=== PATIENT | female | born 1965 | race Caucasian/White ===

== ENCOUNTER 2021-05-18 15:22 | Emergency (ER) | payer BC ==
[2021-05-18 18:06] LABS: Basophils # (A) 0.1 k/uL (0-0.2); Basophils % (A) 1 %; Eosinophils # (A) 0.1 k/uL (0-0.7); Eosinophils % (A) 2 %; Lymphocytes # (A) 2.3 k/uL (1.0-4.8); Lymphocytes % (A) 34 %; MCH 32.1 pg (25.0-35.0); MCHC 34.1 g/dL (31.0-37.0); MCV 94.2 fL (80.0-100.0); Mean Platelet Volume 7.8; Monocytes # (A) 0.4 k/uL (0-1.0); Monocytes % (A) 6 %; Neutrophils # (A) 3.7 k/uL (1.3-7.7); Neutrophils % (A) 56 %; Platelet Count 277 k/uL (150-450); RBC 4.35 m/uL (3.80-5.40); RDW 12.2 % (11.5-15.5); WBC 6.7 k/uL (3.8-10.6)
[2021-05-18 18:19] LABS: ALT 35 U/L (4-34); AST 39 U/L (14-36); African American GFR (CKD) >90 (>60 ml/min/1.73 sqM); Albumin 4.8 g/dL (3.5-5.0); Alkaline Phosphatase 76 U/L (38-126); Anion Gap 9 mmol/L; Blood Urea Nitrogen 23 mg/dL (7-17); Calcium 9.9 mg/dL (8.4-10.2); Carbon Dioxide 29 mmol/L (22-30); Chloride 100 mmol/L (98-107); Glucose 92 mg/dL (74-99); Non-African American GFR(CKD) >90 (>60 ml/min/1.73 sqM); Potassium 4.1 mmol/L (3.5-5.1); Sodium 138 mmol/L (137-145); Total Bilirubin 0.3 mg/dL (0.2-1.3); Total Protein 7.9 g/dL (6.3-8.2)
[2021-05-18 18:29] LABS: INR 0.9 (<1.2); Partial Thromboplastin Time 24.8 sec (22.0-30.0); Prothrombin Time 9.5 sec (9.0-12.0)
[2021-05-18] MEDS ORDERED: KETOROLAC 30 MG/ML 1 ML VIAL IVP STA (19:42)
--- NOTE | 2021-05-18 19:55 | XR ---
EXAMINATION TYPE: XR chest 2V DATE OF EXAM: 05/18/2021 COMPARISON: NONE HISTORY: Dyspnea TECHNIQUE: Frontal and lateral views of the chest are obtained. FINDINGS: There is no focal air space opacity, pleural effusion, or pneumothorax seen. The cardiac silhouette size is within normal limits. The osseous structures are intact. IMPRESSION: No acute cardiopulmonary process.
--- NOTE | 2021-05-18 19:57 | ED ---
General Adult HPI - General Chief complaint: Chest Pain Stated complaint: chest pain x5 days Time Seen by Provider: 05/18/21 17:45 Source: patient, RN notes reviewed, old records reviewed Mode of arrival: wheelchair Limitations: no limitations - History of Present Illness Initial comments: This is a 55-year-old female presents emergency Department complaining of chest pain in the center of her chest since Monday. She states the pain is a little bit to the right of the chest and it hurts to cough and take a deep breath or touch. Patient states she had a very long 10 hour car ride and she was worried about a pulmonary embolism. Patient also states she was making meatballs and it was quite an aggressive process so her chest may be in pain because of that. Patient denies shortness of breath but states it hurts to take a deep breath. Patient denies any recent fever chills or cough. Patient denies any abdominal pain patient denies nausea vomiting diarrhea. Patient denies lightheadedness or dizziness. Patient denies any swelling to the legs or calf tenderness. - Related Data Previous Rx's Medication Instructions Recorded Ketorolac [Toradol] 10 mg PO Q6HR #15 tab 05/18/21 Allergies Allergy/AdvReac Type Severity Reaction Status Date / Time No Known Allergies Allergy Verified 05/18/21 17:43 Review of Systems ROS Statement: Those systems with pertinent positive or pertinent negative responses have been documented in the HPI. ROS Other: All systems not noted in ROS Statement are negative. Past Medical History Past Medical History: Fibromyalgia, Hyperlipidemia History of Any Multi-Drug Resistant Organisms: None Reported Past Surgical History: Bariatric Surgery Additional Past Surgical History / Comment(s): pancreatomy, Past Psychological History: No Psychological Hx Reported Smoking Status: Never smoker Past Alcohol Use History: None Reported Past Drug Use History: None Reported General Exam - General Exam Comments Initial Comments: GENERAL: Patient is well-developed and well-nourished. Patient is nontoxic and well- hydrated and is in no acute distress. ENT: Neck is soft and supple. No significant lymphadenopathy is noted. Oropharynx is clear. Moist mucous membranes. Neck has full range of motion without eliciting any pain. EYES: The sclera were anicteric and conjunctiva were pink and moist. Extraocular movements were intact and pupils were equal round and reactive to light. Eyelids were unremarkable. PULMONARY: Unlabored respirations. Good breath sounds bilaterally. No audible rales rhonchi or wheezing was noted. CARDIOVASCULAR: There is a regular rate and rhythm without any murmurs gallops or rubs. Patient has reproducible chest pain just right of the sternum at the distal aspect of the sternum. ABDOMEN: Soft and nontender with normal bowel sounds. SKIN: Skin is clear with no lesions or rashes and otherwise unremarkable. NEUROLOGIC: Patient is alert and oriented x3. Cranial nerves II through XII are grossly intact. Motor and sensory are also intact. Normal speech, volume and content. Symmetrical smile. MUSCULOSKELETAL: Normal extremities with adequate strength and full range of motion. No lower extremity swelling or edema. No calf tenderness. LYMPHATICS: No significant lymphadenopathy is noted PSYCHIATRIC: Normal psychiatric evaluation. 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 Chest x-ray shows no acute abnormality. Patient had chest pain was completely reproducible with palpation Toradol did help her pain. - Lab Data Result diagrams: 05/18/21 18:00 05/18/21 18:00 Lab Results 05/18/21 05/18/21 05/18/21 Range/Units 18:00 18:00 18:00 WBC 6.7 (3.8-10.6) k/uL RBC 4.35 (3.80-5.40) m/uL Hgb 14.0 (11.4-16.0) gm/dL Hct 41.0 (34.0-46.0) % MCV 94.2 (80.0-100.0) fL MCH 32.1 (25.0-35.0) pg MCHC 34.1 (31.0-37.0) g/dL RDW 12.2 (11.5-15.5) % Plt Count 277 (150-450) k/uL MPV 7.8 Neutrophils % 56 % Lymphocytes % 34 % Monocytes % 6 % Eosinophils % 2 % Basophils % 1 % Neutrophils # 3.7 (1.3-7.7) k/uL Lymphocytes # 2.3 (1.0-4.8) k/uL Monocytes # 0.4 (0-1.0) k/uL Eosinophils # 0.1 (0-0.7) k/uL Basophils # 0.1 (0-0.2) k/uL PT 9.5 (9.0-12.0) sec INR 0.9 (<1.2) APTT 24.8 (22.0-30.0) sec D-Dimer (<0.60) mg/L FEU Sodium 138 (137-145) mmol/L Potassium 4.1 (3.5-5.1) mmol/L Chloride 100 (98-107) mmol/L Carbon Dioxide 29 (22-30) mmol/L Anion Gap 9 mmol/L BUN 23 H (7-17) mg/dL Creatinine 0.64 (0.52-1.04) mg/dL Est GFR (CKD-EPI)AfAm >90 (>60 ml/min/1.73 sqM) Est GFR (CKD-EPI)NonAf >90 (>60 ml/min/1.73 sqM) Glucose 92 (74-99) mg/dL Calcium 9.9 (8.4-10.2) mg/dL Total Bilirubin 0.3 (0.2-1.3) mg/dL AST 39 H (14-36) U/L ALT 35 H (4-34) U/L Alkaline Phosphatase 76 (38-126) U/L Troponin I (0.000-0.034) ng/mL Total Protein 7.9 (6.3-8.2) g/dL Albumin 4.8 (3.5-5.0) g/dL 05/18/21 05/18/21 Range/Units 18:00 20:01 WBC (3.8-10.6) k/uL RBC (3.80-5.40) m/uL Hgb (11.4-16.0) gm/dL Hct (34.0-46.0) % MCV (80.0-100.0) fL MCH (25.0-35.0) pg MCHC (31.0-37.0) g/dL RDW (11.5-15.5) % Plt Count (150-450) k/uL MPV Neutrophils % % Lymphocytes % % Monocytes % % Eosinophils % % Basophils % % Neutrophils # (1.3-7.7) k/uL Lymphocytes # (1.0-4.8) k/uL Monocytes # (0-1.0) k/uL Eosinophils # (0-0.7) k/uL Basophils # (0-0.2) k/uL PT (9.0-12.0) sec INR (<1.2) APTT (22.0-30.0) sec D-Dimer 0.21 (<0.60) mg/L FEU Sodium (137-145) mmol/L Potassium (3.5-5.1) mmol/L Chloride (98-107) mmol/L Carbon Dioxide (22-30) mmol/L Anion Gap mmol/L BUN (7-17) mg/dL Creatinine (0.52-1.04) mg/dL Est GFR (CKD-EPI)AfAm (>60 ml/min/1.73 sqM) Est GFR (CKD-EPI)NonAf (>60 ml/min/1.73 sqM) Glucose (74-99) mg/dL Calcium (8.4-10.2) mg/dL Total Bilirubin (0.2-1.3) mg/dL AST (14-36) U/L ALT (4-34) U/L Alkaline Phosphatase (38-126) U/L Troponin I <0.012 (0.000-0.034) ng/mL Total Protein (6.3-8.2) g/dL Albumin (3.5-5.0) g/dL Disposition Clinical Impression: Chest wall pain Disposition: HOME SELF-CARE Condition: Good Instructions (If sedation given, give patient instructions): Chest Wall Pain (ED) Additional Instructions: In addition to the Toradol the patient can take Tylenol when necessary for pain Prescriptions: Ketorolac [Toradol] 10 mg PO Q6HR #15 tab Is patient prescribed a controlled substance at d/c from ED?: No Referrals: Nonstaff,Physician [Primary Care Provider] - 1-2 days Time of Disposition: 21:25
[2021-05-18 20:14] VITALS: RESP 18
[2021-05-18 21:02] VITALS: PULSE 70
[2021-05-18 22:08] VITALS: BP 121/87; TEMP 98.7
== END 2021-05-18 21:54 | disposition home or self-care (01) ==
LOC: EC 15:22
DX: R07.89 Other chest pain (principal)
CPT/HCPCS: 36415; 93005; 85379; 80053; 84484; 85025; 85610; 85730; 71046; 99285; 96374; J1885

== ENCOUNTER 2024-10-10 23:34 | Observation (INO) | payer BC ==
--- NOTE | 2024-10-11 00:02 | ED ---
Abdominal Pain HPI - General Source: patient, family, RN notes reviewed Mode of arrival: ambulatory Limitations: no limitations <Radha Collins - Last Filed: 10/11/24 03:56> <Jen Hernandez - Last Filed: 10/11/24 07:07> - General Chief Complaint: Abdominal Pain Stated Complaint: Abdominal Pain Time Seen by Provider: 10/11/24 00:02 - History of Present Illness Initial Comments: 58-year-old female presented to the ER for evaluation of abdominal pain. 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 She is unsure of the surgeon's name. Patient reports since 6 PM she has been having a cramping abdominal discomfort that has progressively worsened throughout the night. She believed it was gas and attempted to take Gas-X and Tums without relief of symptoms. She also attempted to make herself throw up as she was feeling nauseous. She denies actually vomiting.Patient denies any diarrhea or constipation. Her last bowel movement was this morning and her normal. Denies any recent hematochezia or melena. As patient was experiencing increased of pain she presented to the ER for further evaluation. She states on her way to the emergency department she became extremely diaphoretic and felt like she was going to pass out given the pain. This has since resolved. She denies any fevers, chills, chest pain, shortness of breath, cough, congestion, urinary complaints or peripheral edema. (Radha Collins) - Related Data Home Medications Medication Instructions Recorded Confirmed DULoxetine HCL [Cymbalta] 60 mg PO DAILY 05/18/21 10/11/24 Ezetimibe [Zetia] 10 mg PO DAILY 05/18/21 10/11/24 Pravastatin Sodium [Pravachol] 40 mg PO DAILY 05/18/21 10/11/24 Spironolactone 100 mg PO DAILY 05/18/21 10/11/24 Estradiol Cream [Estrace Cream 2 gm VAGINAL MOFR 10/11/24 10/11/24 0.01%] Tretinoin/Emollient Base 1 applic TOPICAL HS 10/11/24 10/11/24 [Tretinoin 0.05% Emollient Crm] cycloSPORINE 0.05% OPHTH SOLN 1 drop BOTH EYES BID 10/11/24 10/11/24 [Restasis] tiZANidine [Zanaflex] 2 mg PO QID PRN 10/11/24 10/11/24 Allergies Allergy/AdvReac Type Severity Reaction Status Date / Time hydrocodone [From Vicodin] AdvReac Nausea & Verified 10/11/24 06:24 Vomiting tegaderm Allergy Rash/Hives Uncoded 10/11/24 06:24 Review of Systems ROS Other: All systems not noted in ROS Statement are negative. <Radha Collins - Last Filed: 10/11/24 03:56> ROS Other: All systems not noted in ROS Statement are negative. <Jen Hernandez - Last Filed: 10/11/24 07:07> ROS Statement: Those systems with pertinent positive or pertinent negative responses have been documented in the HPI. Past Medical History Past Medical History: Fibromyalgia, Hyperlipidemia History of Any Multi-Drug Resistant Organisms: None Reported Past Surgical History: Bariatric Surgery Additional Past Surgical History / Comment(s): pancreatomy, Past Psychological History: No Psychological Hx Reported Smoking Status: Never smoker Past Alcohol Use History: Rare Past Drug Use History: None Reported <Radha Collins - Last Filed: 10/11/24 03:56> General Exam Limitations: no limitations General appearance: alert, in no apparent distress Respiratory exam: Present: normal lung sounds bilaterally. Absent: respiratory distress, wheezes, rales, rhonchi, stridor Cardiovascular Exam: Present: regular rate, normal rhythm, normal heart sounds. Absent: systolic murmur, diastolic murmur, rubs, gallop, clicks GI/Abdominal exam: Present: soft, tenderness (left sided), normal bowel sounds Extremities exam: Present: normal inspection, full ROM, normal capillary refill. Absent: tenderness, pedal edema, joint swelling, calf tenderness Neurological exam: Present: alert, oriented X3, CN II-XII intact Skin exam: Present: warm, dry, intact, normal color. Absent: rash <Radha Collins - Last Filed: 10/11/24 03:56> Course <Radha Collins - Last Filed: 10/11/24 03:56> Vital Signs 10/10/24 10/11/24 10/11/24 23:36 03:03 06:42 Temperature 97.4 F L 97.9 F 98.1 F Pulse Rate 73 75 79 Respiratory 18 19 18 Rate Blood Pressure 134/87 106/70 109/69 O2 Sat by Pulse 99 98 99 Oximetry - Reevaluation(s) Reevaluation #1: 10/11/24 02:58 Patient reevaluated. No signs of acute distress. Patient updated on laboratory and CTs results. Patient reporting minimal improvement of discomfort and nausea patient agreeable for admission. 10/11/24 03:[address] Antonio, general surgery. He is agreeable to be on consultation if patient would like to be admitted 10/11/24 03:56 Patient signed out to Dr. Hernandez. (Radha Collins) Medical Decision Making - Lab Data Result diagrams: 10/11/24 00:22 10/11/24 01:28 - EKG Data -: EKG Interpreted by Me <Radha Collins - Last Filed: 10/11/24 03:56> - Lab Data Result diagrams: 10/11/24 00:22 10/11/24 01:28 <Jen Hernandez - Last Filed: 10/11/24 07:07> - Medical Decision Making Was pt. sent in by a medical professional or institution (, PA, QUAHOGGER, urgent care, hospital, or [facility]...) When possible be specific @ -No Did you speak to anyone other than the patient for history (EMS, parent, family, police, friend...)? What history was obtained from this source @ -Patient's and sister, at bedside, aiding in HPI and past medical history. Did you review nursing and triage notes (agree or disagree)? Why? @ -I reviewed and agree with nursing and triage notes Were old charts reviewed (outside hosp., previous admission, EMS record, old EKG, old radiological studies, urgent care reports/EKG's, [facility] records)? Report findings @ -No old charts were reviewed Differential Diagnosis (chest pain, altered mental status, abdominal pain women, abdominal pain men, vaginal bleeding, weakness, fever, dyspnea, syncope, headache, dizziness, GI bleed, back pain, seizure, CVA, palpatations, mental health, musculoskeletal)? @ -Differential Abdominal Pain Women:Appendicitis, Cholecystitis, diverticulosis, ischemic bowel, pancreatitis, hepatitis, UTI, gastroenteritis, AAA, incarcerated hernia, bowel obstruction, constipation, inflammatory bowel, hepatitis, peptic ulcer disease, splenic infarction, perforated viscus, vulvitis, ovarian torsion, PID, kidney stone, placenta abruption, this is not meant to be an all-inclusive list EKG interpreted by me (3pts min.). @ -As above X-rays interpreted by me (1pt min.). @ -None done CT interpreted by me (1pt min.). @ -CT abdomen pelvis showing swirling of abdominal mesentery. There is no obstruction of bowel at this time. Mild fecal retention. Partial small bowel resection no bowel obstruction. U/S interpreted by me (1pt. min.). @ -None done What testing was considered but not performed or refused? (CT, X-rays, U/S, labs)? Why? @ -None What meds were considered but not given or refused? Why? @ -None Did you discuss the management of the patient with other professionals (professionals i.e. , PA, QUAHOGGER, lab, RT, psych nurse, social media marketing analyst, cash control specialist, teacher, airframe technical officer, mattress spring encaser)? Give summary @ -Yes, case discussed with Dr. Antonio, general surgery. Patient refusing to see professional skateboarder general surgery, Dr. Boo. Was smoking cessation discussed for >3mins.? @ -No Was critical care preformed (if so, how long)? @ -No Were there social determinants of health that impacted care today? How? (Homelessness, low income, unemployed, alcoholism, drug addiction, transportation, low edu. Level, literacy, decrease access to med. care, correction, rehab)? @ -No Was there de-escalation of care discussed even if they declined (Discuss DNR or withdrawal of care, Hospice)? DNR status @ -No What co-morbidities impacted this encounter? (DM, HTN, Smoking, COPD, CAD, Cancer, CVA, ARF, Chemo, Hep., AIDS, mental health diagnosis, sleep apnea, morbid obesity)? @ -History of insulinoma with resection and Francisco J-en-Y gastric bypass due to t his Was patient admitted / discharged? Hospital course, mention meds given and route, prescriptions, significant lab abnormalities, going to OR and other pertinent info. @ -Admitted. 58 year old female presenting to the ER for evaluation of abdominal pain. Vitals upon arrival within acceptable limits. Patient had no signs of acute distress nontoxic-appearing. Abdominal exam remarkable for upper and left-sided abdominal tenderness with normal bowel sounds. There is no rebound tenderness or guarding. There is a horizontal healed surgical incision noted to upper quadrants. Laboratory studies along with CT abdomen pelvis will be obtained, patient agreeable studies unimpressive. Lactic 1.2. No significant transaminitis, acidosis or leukocytosis. Urine analysis with no evidence of infection. Given symptomatic control in the ER with IV fluids, Zofran and Toradol. CT abdomen pelvis completed showing swirling of abdominal mesentery however there is no bowel obstruction identified. Patient's surgical history of gastric bypass along with swirling of abdominal mesentery seen on CT scan observation admission was considered and discussed with general surgeon, Dr. Antonio,he is agreeable to be on consultation if patient needs to be admitted for pain/symptoms control. Patient refused to see on-call general surgeon, Dr. Boo. Patient p.o. challenged and deciding if she would like to be admitted or discharged. Case signed out to Dr. Hernandez pending disposition. (Radha Collins) Patient was signed out to myself pending disposition, p.o. challenge. She is a 58-year-old female, past medical history of prior Francisco J-en-Y gastric bypass presenting today for abdominal pain. CT showed a swirl sign but no signs of obstruction. Labs are reassuring without leukocytosis or elevated lactic. Urinalysis shows no signs of infection. Dr. Antonio, general surgery was consulted and stated that he does not feel patient needs to be admitted to surgical service for this finding. Considered admission to medicine for nausea and pain control however on my assessment patient had tolerated p.o. juice states pain is currently controlled. Abdominal exam shows a soft and nontender abdomen. Discussed pros and cons of admission versus discharge home with the patient and ultimately shared decision making was used to decide on discharge. Patient is comfortable with this plan. We discussed signs and symptoms to monitor for closely warranting return to the emergency department. Prior to discharge I was called back to bedside by pt and RN. Pt states shortly after I left the room she began having "excruciating" abdominal pain again, that comes and goes. After getting up and around she is somewhat more comfortable though pain is still present. She currently is overall comfortable appearing. Due to return of pain after PO intake, description of pain, and CT findings, will admit pt for observation, NPO, bowel rest and bowel regime. Pt agreeable with POC. Case discussed with Dr. Corona, kindly accepts pt for admission. Undiagnosed new problem with uncertain prognosis? @ -No Drug Therapy requiring intensive monitoring for toxicity (Heparin, Nitro, Ins ulin, Cardizem)? @ -No Were any procedures done? @ -No Diagnosis/symptom? @Intermittent abdominal pain, intractable abdominal pain Acute, or Chronic, or Acute on Chronic? @Acute Uncomplicated (without systemic symptoms) or Complicated (systemic symptoms)? @Complicated Side effects of treatment? @ -No Exacerbation, Progression, or Severe Exacerbation? @ -No Poses a threat to life or bodily function? How? (Chest pain, [place], [place], pneumonia, PE, COPD, DKA, ARF, appy, cholecystitis, CVA, Diverticulitis, Homicidal, Suicidal, threat to staff... and all critical care pts) @Unlikely at this time (Jen Hernandez) - Lab Data Lab Results 10/11/24 10/11/24 10/11/24 Range/Units 00:09 00:22 01:28 WBC 7.70 (4.50-10.00) 10*3/uL RBC 4.38 (4.10-5.20) 10*6/uL Hgb 14.2 (12.0-15.0) g/dL Hct 40.7 (37.2-46.3) % MCV 92.9 (80.0-97.0) fL MCH 32.4 H (27.0-32.0) pg MCHC 34.9 (32.0-37.0) g/dL Plt Count 276 (140-440) 10*3/uL MPV 11.4 (9.5-12.2) fL Immature Gran % (Auto) 0.1 % Neutrophils % 56.5 % Lymphocytes % 31.8 % Monocytes % 9.1 % Eosinophils % 1.6 % Basophils % 0.9 % Immature Gran # 0.01 (0.00-0.04) 10*3/uL Neutrophils # 4.35 (1.80-7.70) 10*3/uL Lymphocytes # 2.45 (0.90-5.00) 10*3/uL Monocytes # 0.70 (0.20-1.00) 10*3/uL Eosinophils # 0.12 (0.04-0.35) 10*3/uL Basophils # 0.07 (0.00-0.10) 10*3/uL Sodium 133 L (137-145) mmol/L Potassium 4.4 (3.5-5.1) mmol/L Chloride 102 (98-107) mmol/L Carbon Dioxide 24 (22-30) mmol/L Anion Gap 7 mmol/L BUN 21 H (7-17) mg/dL Creatinine 0.49 L (0.52-1.04) mg/dL Est GFR (CKD-EPI)AfAm >90 (>60 ml/min/1.73 sqM) Est GFR (CKD-EPI)NonAf >90 (>60 ml/min/1.73 sqM) Glucose 103 H (74-99) mg/dL Plasma Lactic Acid Bird (0.7-2.0) mmol/L Calcium 9.4 (8.4-10.2) mg/dL Total Bilirubin 1.1 (0.2-1.3) mg/dL AST 42 H (14-36) U/L ALT 25 (4-34) U/L Alkaline Phosphatase 80 (38-126) U/L Total Protein 6.5 (6.3-8.2) g/dL Albumin 3.9 (3.5-5.0) g/dL Amylase 39 (30-110) U/L Lipase 60 (23-300) U/L Urine Color Light Yellow Urine Appearance Cloudy H (Clear) Urine pH 7.0 (5.0-8.0) Ur Specific Marks 1.020 (1.001-1.035) Urine Protein Negative (Negative) Urine Glucose (UA) Negative (Negative) Urine Ketones Negative (Negative) Urine Blood Negative (Negative) Urine Nitrite Negative (Negative) Urine Bilirubin Negative (Negative) Urine Urobilinogen <2.0 (<2.0) mg/dL Ur Leukocyte Esterase Negative (Negative) Urine RBC <1 (0-5) /hpf Urine WBC <1 (0-5) /hpf Ur Squamous Epith Cells 1 (0-4) /hpf Amorphous Sediment Few H (None) /hpf Urine Mucus Rare H (None) /hpf 04/25/25 Range/Units 01:28 WBC (4.50-10.00) 10*3/uL RBC (4.10-5.20) 10*6/uL Hgb (12.0-15.0) g/dL Hct (37.2-46.3) % MCV (80.0-97.0) fL MCH (27.0-32.0) pg MCHC (32.0-37.0) g/dL Plt Count (140-440) 10*3/uL MPV (9.5-12.2) fL Immature Gran % (Auto) % Neutrophils % % Lymphocytes % % Monocytes % % Eosinophils % % Basophils % % Immature Gran # (0.00-0.04) 10*3/uL Neutrophils # (1.80-7.70) 10*3/uL Lymphocytes # (0.90-5.00) 10*3/uL Monocytes # (0.20-1.00) 10*3/uL Eosinophils # (0.04-0.35) 10*3/uL Basophils # (0.00-0.10) 10*3/uL Sodium (137-145) mmol/L Potassium (3.5-5.1) mmol/L Chloride (98-107) mmol/L Carbon Dioxide (22-30) mmol/L Anion Gap mmol/L BUN (7-17) mg/dL Creatinine (0.52-1.04) mg/dL Est GFR (CKD-EPI)AfAm (>60 ml/min/1.73 sqM) Est GFR (CKD-EPI)NonAf (>60 ml/min/1.73 sqM) Glucose (74-99) mg/dL Plasma Lactic Acid Bird 1.2 (0.7-2.0) mmol/L Calcium (8.4-10.2) mg/dL Total Bilirubin (0.2-1.3) mg/dL AST (14-36) U/L ALT (4-34) U/L Alkaline Phosphatase (38-126) U/L Total Protein (6.3-8.2) g/dL Albumin (3.5-5.0) g/dL Amylase (30-110) U/L Lipase (23-300) U/L Urine Color Urine Appearance (Clear) Urine pH (5.0-8.0) Ur Specific Marks (1.001-1.035) Urine Protein (Negative) Urine Glucose (UA) (Negative) Urine Ketones (Negative) Urine Blood (Negative) Urine Nitrite (Negative) Urine Bilirubin (Negative) Urine Urobilinogen (<2.0) mg/dL Ur Leukocyte Esterase (Negative) Urine RBC (0-5) /hpf Urine WBC (0-5) /hpf Ur Squamous Epith Cells (0-4) /hpf Amorphous Sediment (None) /hpf Urine Mucus (None) /hpf - EKG Data EKG Comments: EKG completed at 137 showing a sinus rhythm. Early repolarization noted. No ST segment elevations or depressions. No T wave inversions. Ventricular rate 70, NM interval 194, QRS duration 90, QT/QTc 372/393 (Radha Collins) Disposition <Radha Collins - Last Filed: 10/11/24 03:56> Is patient prescribed a controlled substance at d/c from ED?: No <Jen Hernandez - Last Filed: 10/11/24 07:07> Clinical Impression: Abdominal pain Disposition: ADMITTED IP TO THIS HOSP Condition: Stable
[2024-10-11] MEDS: SODIUM CHLORIDE 0.9% 1,000 ML IV ONE (00:18)
[2024-10-11] MEDS: KETOROLAC 15 MG/ML 1 ML VIAL IVP STA (00:25)
[2024-10-11] MEDS: ONDANSETRON 4 MG/2 ML VIAL IVP STA (00:26)
[2024-10-11 00:42] LABS: Basophils # (A) 0.07 10*3/uL (0.00-0.10); Basophils % (A) 0.9 %; Eosinophils # (A) 0.12 10*3/uL (0.04-0.35); Eosinophils % (A) 1.6 %; HCT 40.7 % (37.2-46.3); HGB 14.2 g/dL (12.0-15.0); Lymphocytes # (A) 2.45 10*3/uL (0.90-5.00); Lymphocytes % (A) 31.8 %; MCH 32.4 pg (27.0-32.0); MCHC 34.9 g/dL (32.0-37.0); MCV 92.9 fL (80.0-97.0); Mean Platelet Volume 11.4 fL (9.5-12.2); Monocytes % (A) 9.1 %; Neutrophils # (A) 4.35 10*3/uL (1.80-7.70); Neutrophils % (A) 56.5 %; Platelet Count 276 10*3/uL (140-440); RBC 4.38 10*6/uL (4.10-5.20); RDW 13.3 % (11.5-14.5)
[2024-10-11 01:31] LABS: Amorphous Sediment,Urine Few /hpf; Appearance,Urine Cloudy (Clear); Bilirubin,Urine Negative (Negative); Blood,Urine Negative (Negative); Color,Urine Light Yellow; Glucose,Urine (UA) Negative (Negative); Ketones,Urine Negative (Negative); Leukocyte Esterase,Urine Negative (Negative); Mucus,Urine Rare /hpf; Nitrite,Urine Negative (Negative); Protein,Urine Negative (Negative); RBC,Urine <1 /hpf (0-5); Squamous Epithelial Cell,Urine 1 /hpf (0-4); Urobilinogen,Urine <2.0 mg/dL (<2.0); WBC,Urine <1 /hpf (0-5)
--- NOTE | 2024-10-11 02:01 | CT ---
EXAM: CT Abdomen and Pelvis With Intravenous Contrast CLINICAL HISTORY: ITS.REASON CT Reason: abdominal pain hx bypass TECHNIQUE: Axial computed tomography images of the abdomen and pelvis with intravenous contrast. CTDI is 15 mGy and DLP is 692.4 mGy-cm. This CT exam was performed using one or more of the following dose reduction techniques: automated exposure control, adjustment of the mA and/or kV according to patient size, and/or use of iterative reconstruction technique. COMPARISON: No relevant prior studies available. FINDINGS: Lung bases: Unremarkable. No mass. No consolidation. ABDOMEN: Liver: Unremarkable. No mass. Gallbladder and bile ducts: Unremarkable. No calcified stones. No ductal dilation. Pancreas: Unremarkable. No mass. No ductal dilation. Spleen: Unremarkable. No splenomegaly. Adrenals: Unremarkable. No mass. Kidneys and ureters: Unremarkable. No solid mass. No hydronephrosis. Stomach and bowel: Swirling of the abdominal mesentery; however, there is no obstruction of bowel at this time. Mild fecal retention, correlate for constipation. Partial small bowel resection. No bowel obstruction. No mucosal thickening. PELVIS: Appendix: No findings to suggest acute appendicitis. Bladder: Unremarkable. No mass. Reproductive: Unremarkable as visualized. ABDOMEN and PELVIS: Intraperitoneal space: Unremarkable. No free air. No significant fluid collection. Bones/joints: No acute fracture. No dislocation. Soft tissues: Unremarkable. Vasculature: Unremarkable. No abdominal aortic aneurysm. Lymph nodes: Unremarkable. No enlarged lymph nodes. IMPRESSION: 1. Swirling of the abdominal mesentery; however, there is no obstruction of bowel at this time. 2. Mild fecal retention, correlate for constipation. 3. Partial small bowel resection. No bowel obstruction.
[2024-10-11 02:16] LABS: ALT 25 U/L (4-34); AST 42 U/L (14-36); African American GFR (CKD) >90 (>60 ml/min/1.73 sqM); Albumin 3.9 g/dL (3.5-5.0); Alkaline Phosphatase 80 U/L (38-126); Amylase 39 U/L (30-110); Anion Gap 7 mmol/L; Blood Urea Nitrogen 21 mg/dL (7-17); Calcium 9.4 mg/dL (8.4-10.2); Carbon Dioxide 24 mmol/L (22-30); Chloride 102 mmol/L (98-107); Glucose 103 mg/dL (74-99); Lipase 60 U/L (23-300); Non-African American GFR(CKD) >90 (>60 ml/min/1.73 sqM); Sodium 133 mmol/L (137-145); Total Bilirubin 1.1 mg/dL (0.2-1.3); Total Protein 6.5 g/dL (6.3-8.2)
[2024-10-11 02:37] LABS: Potassium 4.4 mmol/L (3.5-5.1)
[2024-10-11] MEDS ORDERED: MAG HYDROX/AL HYDROX/SIMETH 30 ML CUP PO PRN (05:55)
[2024-10-11] MEDS ORDERED: HYDROmorphone 0.5 MG/0.5 ML SYRINGE IVP PRN (05:56)
[2024-10-11] MEDS ORDERED: NALOXONE 0.4 MG/ML 1 ML VIAL IV PRN (05:56)
[2024-10-11] MEDS ORDERED: ONDANSETRON 4 MG/2 ML VIAL IVP PRN (05:56)
[2024-10-11] MEDS ORDERED: KETOROLAC 15 MG/ML 1 ML VIAL IVP PRN (06:00)
[2024-10-11] MEDS: LACTATED RINGERS 1,000 ML IV SCH (06:24)
[2024-10-11] MEDS: SODIUM CHLORIDE 0.9% 1,000 ML IV SCH (06:25)
[2024-10-11] MEDS: ACETAMINOPHEN TAB 325 MG TAB PO PRN (06:38)
[2024-10-11 07:36] LABS: Basophils # (A) 0.07 10*3/uL (0.00-0.10); Basophils % (A) 1.2 %; Eosinophils # (A) 0.07 10*3/uL (0.04-0.35); Eosinophils % (A) 1.2 %; HCT 39.1 % (37.2-46.3); HGB 13.2 g/dL (12.0-15.0); Lymphocytes # (A) 1.82 10*3/uL (0.90-5.00); Lymphocytes % (A) 31.8 %; MCH 31.8 pg (27.0-32.0); MCHC 33.8 g/dL (32.0-37.0); MCV 94.2 fL (80.0-97.0); Mean Platelet Volume 9.5 fL (9.5-12.2); Monocytes # (A) 0.68 10*3/uL (0.20-1.00); Monocytes % (A) 11.9 %; Neutrophils # (A) 3.08 10*3/uL (1.80-7.70); Neutrophils % (A) 53.7 %; Platelet Count 253 10*3/uL (140-440); RBC 4.15 10*6/uL (4.10-5.20); WBC 5.73 10*3/uL (4.50-10.00)
[2024-10-11 07:53] LABS: African American GFR (CKD) >90 (>60 ml/min/1.73 sqM); Anion Gap 5 mmol/L; Blood Urea Nitrogen 17 mg/dL (7-17); Calcium 9.8 mg/dL (8.4-10.2); Carbon Dioxide 30 mmol/L (22-30); Chloride 105 mmol/L (98-107); Glucose 90 mg/dL (74-99); Non-African American GFR(CKD) >90 (>60 ml/min/1.73 sqM); Potassium 4.1 mmol/L (3.5-5.1); Sodium 140 mmol/L (137-145)
[2024-10-11] MEDS ORDERED: CALCIUM CARBONATE 500 MG CHEWABLE PO PRN (08:00)
[2024-10-11] MEDS ORDERED: tiZANidine 4 MG TAB PO PRN (08:07)
[2024-10-11 08:40] VITALS: RESP 16
[2024-10-11] MEDS ORDERED: bisacodyL 5 MG TABLET.DR PO PRN (09:00)
[2024-10-11] MEDS ORDERED: DOCUSATE 100 MG CAP PO PRN (09:00)
[2024-10-11] MEDS: DULoxetine HCL 60 MG CAPSULE.DR PO SCH (09:47)
[2024-10-11] MEDS: PRAVASTATIN SODIUM 40 MG TAB PO SCH (09:47)
[2024-10-11] MEDS: EZETIMIBE 10 MG TAB PO SCH (09:48)
[2024-10-11] MEDS: FAMOTIDINE 20 MG TAB PO SCH (09:48)
--- NOTE | 2024-10-11 12:34 | P.HPIM ---
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 in [facility] in 2011, hyperlipidemia, and anxiety. She presented to the emergency department with a chief complaint of intractable abdominal pain. She reports pain began yesterday evening and progressively worsened throughout the night. She states the pain has been accompanied by nausea but denies any vomiting. She reports ab le to pass flatus and reports last bowel movement was normal and was this morning. Patient denies having any headache, lightheadedness, dizziness, chest pain, palpitations, shortness of breath, experiencing any difficulties with her changes in her urinary function, or any other complaints at this time. Upon arrival to our facility, patient underwent evaluation in the emergency department. Vital signs upon arrival show blood pressure 134/87, heart rate 73, respiratory rate 18, temp 97.4 F, and SpO2 of 99% on room air. Labs completed and reviewed. CBC unremarkable. BMP showing mild hyponatremia with sodium of 133 and prerenal azotemia with BUN of 21, creatinine 0.49, GFR greater than 90. Blood glucose was 103. Lactic acid was 1.2. Liver profile showing slightly elevated AST of 42 otherwise normal findings. Lipase normal findings at 90. Urinalysis was negative for blood or infection. CT abdomen and pelvis with IV contrast was completed showing swirling of the abdominal mesentery, however showed no signs of obstruction of the bowel at this time, revealing mild fecal retention likely constipation. Patient was admitted under services with consultation to general surgery. Shortly after admission, patient had full resolution of pain, discussed with general surgeon will advance diet to clear liquids at this time. Review of systems: Pertinent positives and negatives as discussed in HPI, a complete review of systems was performed and all other systems are negative. Physical exam: Vital signs reviewed and stable. General: Nontoxic, no distress and appears stated age. Derm: Skin warm and dry, normal coloration for ethnicity. Head: Atraumatic, normocephalic and symmetric. Eyes: EOM's intact, no lid lag, and anicteric sclera Mouth: no lip lesions, mucus membranes moist Cardiovascular: regular rate and rhythm with normal S1S2, no murmur, positive posterior tibial pulses bilaterally, and cap refill < 2 seconds. Lungs: Respirations even, regular, and unlabored on room air. Lungs CTA bilaterally, no rhonchi, no rales, no wheezing, and no accessory muscle usage. Abdominal: soft, nontender to palpation, no guarding, no appreciable organomegaly Ext: ROM intact. No gross muscle atrophy, no edema, no contractures Neuro: Speech clear, face symmetrical and CN II-XII grossly intact with no noted focal neuro deficits Psych: Alert and oriented to person, place, time, and situation. Appropriate and pleasant affect. 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 - Will advance diet to clear liquids at this time as patient reporting abdominal pain has resolved. -Symptomatic care and pain management. Hyperlipidemia -Continue daily medication regimen with pravastatin 40 mg daily and Zetia 10 mg daily. Anxiety -Continue duloxetine 60 mg daily. Data and imaging reviewed: As stated above in HPI The patient is admitted with an anticipated less than 2 midnight stay for evaluation of abdominal pain. CODE STATUS: Full code Discussed with: Patient, RN, patient's at bedside, ED physician, general surgery PA and general surgeon Anticipated discharge date: Pending clinical course, likely [address]: Home Patient was seen independently by Nurse Practitioner. This document was prepared using [employer]de dictation software. Please allow for errors in rent and miscellaneous remittance clerk while rare they do occur. Juan J Farias NP rendered care for this patient independently, reviewed the findings and plan as documented in the note above and agree with plan. I did not physically speak with or examine the patient on this date. . Past Medical History Past Medical History: Fibromyalgia, Hyperlipidemia History of Any Multi-Drug Resistant Organisms: None Reported Past Surgical History: Bariatric Surgery Additional Past Surgical History / Comment(s): pancreatomy, Past Psychological History: No Psychological Hx Reported Smoking Status: Never smoker Past Alcohol Use History: Rare Past Drug Use History: None Reported - Past Family History Mother Family Medical History: Cancer Medications and Allergies Home Medications Medication Instructions Recorded Confirmed Type DULoxetine HCL [Cymbalta] 60 mg PO DAILY 05/18/21 10/11/24 History Ezetimibe [Zetia] 10 mg PO DAILY 05/18/21 10/11/24 History Pravastatin Sodium [Pravachol] 40 mg PO DAILY 05/18/21 10/11/24 History Spironolactone 100 mg PO DAILY 05/18/21 10/11/24 History Estradiol Cream [Estrace Cream 2 gm VAGINAL MOFR 10/11/24 10/11/24 History 0.01%] Tretinoin/Emollient Base 1 applic TOPICAL HS 10/11/24 10/11/24 History [Tretinoin 0.05% Emollient Crm] cycloSPORINE 0.05% OPHTH SOLN 1 drop BOTH EYES BID 10/11/24 10/11/24 History [Restasis] tiZANidine [Zanaflex] 2 mg PO QID PRN 10/11/24 10/11/24 History Allergies Allergy/AdvReac Type Severity Reaction Status Date / Time hydrocodone [From Vicodin] AdvReac Nausea & Verified 10/11/24 06:24 Vomiting tegaderm Allergy Rash/Hives Uncoded 10/11/24 06:24 Physical Exam Vitals: Vital Signs Temp Pulse Resp BP Pulse Ox 10/11/24 06:42 98.1 F 79 18 109/69 99 10/11/24 03:03 97.9 F 75 19 106/70 98 10/10/24 23:36 97.4 F L 73 18 134/87 99 Intake and Output 10/10/24 10/11/24 10/11/24 22:59 06:59 14:59 Other: Weight 65.771 kg Results CBC & Chem 7: 10/11/24 07:24 10/11/24 07:24 Labs: Abnormal Lab Results - Last 24 Hours (Table) 10/11/24 10/11/24 10/11/24 Range/Units 00:09 00:22 01:28 MCH 32.4 H (27.0-32.0) pg Sodium 133 L (137-145) mmol/L BUN 21 H (7-17) mg/dL Creatinine 0.49 L (0.52-1.04) mg/dL Glucose 103 H (74-99) mg/dL AST 42 H (14-36) U/L Urine Appearance Cloudy H (Clear) Amorphous Sediment Few H (None) /hpf Urine Mucus Rare H (None) /hpf
[2024-10-11 15:29] VITALS: BP 103/69; PULSE 72; TEMP 98.1
--- NOTE | 2024-10-11 15:31 | P.GSCN ---
History of Present Illness Consult date: 10/11/24 History of present illness: CHIEF COMPLAINT: Abdominal pain HISTORY OF PRESENT ILLNESS: This is a 58-year-old female with a known history of insulinoma and had surgical intervention of Francisco J-en-Y and surgery on her pancreas in 2011 [facility]. Patient presented to the hospital with complaints of abdominal pain, abdominal distention and bl oating. She reports having a small bowel movement just before coming into the ER. She is having flatus. Denies any nausea or vomiting. She reports that her abdominal pain and bloating have improved since admission. CT scan abdomen and pelvis had reported swirling of the abdominal mesentery. There is no obstruction of the bowel at this time. Mild fecal retention correlate for constipation. Partial small bowel resection. No bowel obstruction. Due to patient's abdominal pain improving she was starting clear liquids when I evaluated her this morning. PAST MEDICAL HISTORY: Fibromyalgia, hyperlipidemia PAST SURGICAL HISTORY: See below MEDICATIONS: See below ALLERGIES: See below SOCIAL HISTORY: No illicit drug use. REVIEW OF SYSTEMS: CONSTITUTIONAL: Denies fever or chills. HEENT: Denies blurred vision, vision changes, or eye pain. Denies hemoptysis CARDIOVASCULAR: Denies chest pain or pressure. RESPIRATORY: No shortness of breath. GASTROINTESTINAL: See HPI for pertinent findings HEMATOLOGIC: Denies bleeding disorders. GENITOURINARY: Denies any blood in urine or increased urinary frequency. SKIN: Denies pruitis. Denies rash. PHYSICAL EXAM: VITAL SIGNS: Reviewed GENERAL: Well-developed in no acute distress. HEENT: No sclera icterus. Extraocular movements grossly intact. Moist buccal mucosa. Head is atraumatic, normocephalic. No nasal drainage. ABDOMEN: Soft. Nondistended. Nontender. No rebound or guarding noted. NEUROLOGIC: Alert and oriented. Cranial nerves II through XII grossly intact. LABORATORY DATA: WBCs 5.73 Hgb 13.2 platelets 253 Sodium 140 potassium 4.1 creatinine 0.69 IMAGING: CT scan abdomen pelvis reports swelling of the abdominal mesentery however there is no obstruction of bowel at this time. Mild fecal retention. Correlate for constipation. Partial small bowel resection. No bowel obstruction. ASSESSMENT: 1. Abdominal pain with abdominal distention now improved. Possible internal hernia. CT scan had reported swelling of the abdominal mesentery 2. History of insulinoma status post surgery in 2011 PLAN: - Patient's symptoms have improved. Patient's diet will be advanced to regular. Patient can be discharged if tolerating regular diet - Discussed with patient to remain on a good bowel regimen at home and to avoid constipation. - Discussed with patient that she should follow-up with her surgeon outpatient Physician Identity Access Management Architect note has been reviewed by physician. Signing provider agrees with the documented findings, assessment, and plan of care. Attestation Patient was discharged prior to my evaluation, however I did discuss this patient with admitting team along with the emergency department and surgery PA. I was informed by emergency department that patient had history of Francisco J-en-Y gastric bypass and concern for swelling of the mesentery. On personal evaluation of the chart, patient is noted to have swirl sign, not necessarily swelling of the mesentery. Emergency department mention that patient had a Francisco J-en-Y gastric bypass, however failed to mention history of insulinoma requiring partial pancreatectomy. With this surgical history, it would be ideal for patient to follow in tertiary care center for any surgical intervention. With the swirl sign, there can be concern for internal hernia, however there is no evidence of bowel obstruction. Patient is having appropriate bowel function since her arrival. She states that her symptoms have improved. Initially, she was going to leave from the emergency department, however did have recurrent pain. Patient then states that her abdominal pain did improve again and diet was advanced with patient tolerance. She was requesting discharge and patient was discharged. I did provide instruction over the phone that should patient have recurrent symptoms she should follow at her initial surgical facility as it is a tertiary care facility. Guevara Antonio DO Past Medical History Past Medical History: Fibromyalgia, Hyperlipidemia History of Any Multi-Drug Resistant Organisms: None Reported Past Surgical History: Bariatric Surgery Additional Past Surgical History / Comment(s): pancreatomy, Past Anesthesia/Blood Transfusion Reactions: No Reported Reaction Past Psychological History: No Psychological Hx Reported Smoking Status: Never smoker Past Alcohol Use History: Rare Past Drug Use History: None Reported - Past Family History Mother Family Medical History: Cancer Medications and Allergies Home Medications Medication Instructions Recorded Confirmed Type DULoxetine HCL [Cymbalta] 60 mg PO DAILY 05/18/21 10/11/24 History Ezetimibe [Zetia] 10 mg PO DAILY 05/18/21 10/11/24 History Pravastatin Sodium [Pravachol] 40 mg PO DAILY 05/18/21 10/11/24 History Spironolactone 100 mg PO DAILY 05/18/21 10/11/24 History Estradiol Cream [Estrace Cream 2 gm VAGINAL MOFR 10/11/24 10/11/24 History 0.01%] Tretinoin/Emollient Base 1 applic TOPICAL HS 10/11/24 10/11/24 History [Tretinoin 0.05% Emollient Crm] cycloSPORINE 0.05% OPHTH SOLN 1 drop BOTH EYES BID 10/11/24 10/11/24 History [Restasis] tiZANidine [Zanaflex] 2 mg PO QID PRN 10/11/24 10/11/24 History Allergies Allergy/AdvReac Type Severity Reaction Status Date / Time hydrocodone [From Vicodin] AdvReac Nausea & Verified 10/11/24 06:24 Vomiting tegaderm Allergy Rash/Hives Uncoded 10/11/24 06:24 Surgical - Exam Osteopathic Statement: *. No significant issues noted on an osteopathic structural exam other than those noted in the History and Physical/Consult. Vital Signs Temp Pulse Resp BP Pulse Ox 97.4 F L 73 18 134/87 99 10/10/24 23:36 10/10/24 23:36 10/10/24 23:36 10/10/24 23:36 10/10/24 23:36 Results - Labs 10/11/24 07:24 10/11/24 07:24 Abnormal Lab Results - Last 24 Hours (Table) 10/11/24 10/11/24 10/11/24 Range/Units 00:09 00:22 01:28 MCH 32.4 H (27.0-32.0) pg Sodium 133 L (137-145) mmol/L BUN 21 H (7-17) mg/dL Creatinine 0.49 L (0.52-1.04) mg/dL Glucose 103 H (74-99) mg/dL AST 42 H (14-36) U/L Urine Appearance Cloudy H (Clear) Amorphous Sediment Few H (None) /hpf Urine Mucus Rare H (None) /hpf Diabetes panel 10/11/24 10/11/24 Range/Units 01:28 07:24 Sodium 133 L 140 (137-145) mmol/L Potassium 4.4 4.1 (3.5-5.1) mmol/L Chloride 102 105 (98-107) mmol/L Carbon Dioxide 24 30 (22-30) mmol/L BUN 21 H 17 (7-17) mg/dL Creatinine 0.49 L 0.69 (0.52-1.04) mg/dL Glucose 103 H 90 (74-99) mg/dL Calcium 9.4 9.8 (8.4-10.2) mg/dL AST 42 H (14-36) U/L ALT 25 (4-34) U/L Alkaline Phosphatase 80 (38-126) U/L Total Protein 6.5 (6.3-8.2) g/dL Albumin 3.9 (3.5-5.0) g/dL Calcium panel 10/11/24 10/11/24 Range/Units : 07:24 Calcium 9.4 9.8 (8.4-10.2) mg/dL Albumin 3.9 (3.5-5.0) g/dL Pituitary panel 10/11/24 10/11/24 Range/Units : 07:24 Sodium 133 L 140 (137-145) mmol/L Potassium 4.4 4.1 (3.5-5.1) mmol/L Chloride 102 105 (98-107) mmol/L Carbon Dioxide 24 30 (22-30) mmol/L BUN 21 H 17 (7-17) mg/dL Creatinine 0.49 L 0.69 (0.52-1.04) mg/dL Glucose 103 H 90 (74-99) mg/dL Calcium 9.4 9.8 (8.4-10.2) mg/dL Adrenal panel 10/11/24 10/11/24 Range/Units : 07:24 Sodium 133 L 140 (137-145) mmol/L Potassium 4.4 4.1 (3.5-5.1) mmol/L Chloride 102 105 (98-107) mmol/L Carbon Dioxide 24 30 (22-30) mmol/L BUN 21 H 17 (7-17) mg/dL Creatinine 0.49 L 0.69 (0.52-1.04) mg/dL Glucose 103 H 90 (74-99) mg/dL Calcium 9.4 9.8 (8.4-10.2) mg/dL Total Bilirubin 1.1 (0.2-1.3) mg/dL AST 42 H (14-36) U/L ALT 25 (4-34) U/L Alkaline Phosphatase 80 (38-126) U/L Total Protein 6.5 (6.3-8.2) g/dL Albumin 3.9 (3.5-5.0) g/dL
--- NOTE | 2024-10-11 15:33 | P.DS ---
Providers Date of admission: 10/11/24 05:59 Expected date of discharge: 10/11/24 Attending physician: Abner Carrion MD Consults: 10/11/24 05:55 Consult Physician Urgent Consulting Provider: Guevara Antonio Consult Reason/Comments: Int. ab. pain, CT w/ swirl sign Do you want consulting provider notified?: Already Contacted 10/11/24 05:57 Consult Physician Routine Consulting Provider: Guevara Antonio Consult Reason/Comments: abdominal pain Do you want consulting provider notified?: Yes Primary care physician: [facility] Course: Discharge Diagnosis: Intractable abdominal pain. Resolved. Diet slowly advanced, patient tolerating well. Denies having any nausea or vomiting. No further episodes of abdominal pain or cramping. Patient reports continues to pass flatus without difficulties and normal bowel function. Patient cleared from general surgery perspective and medically optimized for discharge at this time. 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 Continue daily medication regimen with pravastatin 40 mg daily and Zetia 10 mg daily. Anxiety. Continue duloxetine 60 mg daily. 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 in [facility] in 2011, hyperlipidemia, and anxiety. She presented to the emergency department with a chief complaint of intractable abdominal pain. She reports pain began yesterday evening and progressively worsened throughout the night. She states the pain has been accompanied by nausea but denies any vomiting. She reports able to pass flatus and reports last bowel movement was normal and was this morning. Patient denies having any headache, lightheadedness, dizziness, chest pain, palpitations, shortness of breath, experiencing any difficulties with her changes in her urinary function, or any other complaints at this time. Upon arrival to our facility, patient underwent evaluation in the emergency department. Vital signs upon arrival show blood pressure 134/87, heart rate 73, respiratory rate 18, temp 97.4 F, and SpO2 of 99% on room air. Labs completed and reviewed. CBC unremarkable. BMP showing mild hyponatremia with sodium of 133 and prerenal azotemia with BUN of 21, creatinine 0.49, GFR greater than 90. Blood glucose was 103. Lactic acid was 1.2. Liver profile showing slightly elevated AST of 42 otherwise normal findings. Lipase normal findings at 90. Urinalysis was negative for blood or infection. CT abdomen and pelvis with IV contrast was completed showing swirling of the abdominal mesentery, however showed no signs of obstruction of the bowel at this time, revealing mild fecal retention likely constipation. Patient was admitted under services with consultation to general surgery. Shortly after admission, patient had full resolution of pain, discussed with general surgeon will advance diet to clear liquids at this time. Diet slowly advanced, patient tolerating well. Denies having any nausea or vomiting. No further episodes of abdominal pain or cramping. Patient reports continues to pass flatus without difficulties and normal bowel function. Patient cleared from general surgery perspective and medically optimized for discharge at this time. Physical exam: Vital signs reviewed and stable. General: Nontoxic, no distress and appears stated age. Derm: Skin warm and dry, normal coloration for ethnicity. Head: Atraumatic, normocephalic and symmetric. Eyes: EOM's intact, no lid lag, and anicteric sclera Mouth: no lip lesions, mucus membranes moist Cardiovascular: regular rate and rhythm with normal S1S2, no murmur, positive posterior tibial pulses bilaterally, and cap refill < 2 seconds. Lungs: Respirations even, regular, and unlabored on room air. Lungs CTA bilaterally, no rhonchi, no rales, no wheezing, and no accessory muscle usage. Abdominal: soft, nontender to palpation, no guarding, no appreciable organomegaly Ext: ROM intact. No gross muscle atrophy, no edema, no contractures Neuro: Speech clear, face symmetrical and CN II-XII grossly intact with no noted focal neuro deficits Psych: Alert and oriented to person, place, time, and situation. Appropriate and pleasant affect. A total of 31 minutes of time were spent preparing this complex discharge summary. Pt was discharged on 10/11/2024 at 3:33 PM Patient was seen independently by Nurse Practitioner. This document was prepared using [employer] dictation software. Please allow for errors in sales expert home theater while rare they do occur. Juan J Farias NP rendered care for this patient independently, reviewed the findings and plan as documented in the note above. I did not physically speak with or examine the patient on this date. Patient Condition at Discharge: Stable Plan - Discharge Summary Discharge Rx Participant: Yes New Discharge Prescriptions: Continue Spironolactone 100 mg PO DAILY tiZANidine [Zanaflex] 2 mg PO QID PRN PRN Reason: Muscle Spasm Tretinoin/Emollient Base [Tretinoin 0.05% Emollient Crm] 1 applic TOPICAL HS Pravastatin Sodium [Pravachol] 40 mg PO DAILY Ezetimibe [Zetia] 10 mg PO DAILY DULoxetine HCL [Cymbalta] 60 mg PO DAILY cycloSPORINE 0.05% OPHTH SOLN [Restasis] 1 drop BOTH EYES BID Estradiol Cream [Estrace Cream 0.01%] 2 gm VAGINAL MOFR Discharge Medication List DULoxetine HCL [Cymbalta] 60 mg PO DAILY 05/18/21 [History] Ezetimibe [Zetia] 10 mg PO DAILY 05/18/21 [History] Pravastatin Sodium [Pravachol] 40 mg PO DAILY 05/18/21 [History] Spironolactone 100 mg PO DAILY 05/18/21 [History] Estradiol Cream [Estrace Cream 0.01%] 2 gm VAGINAL MOFR 10/11/24 [History] Tretinoin/Emollient Base [Tretinoin 0.05% Emollient Crm] 1 applic TOPICAL HS 10/11/24 [History] cycloSPORINE 0.05% OPHTH SOLN [Restasis] 1 drop BOTH EYES BID 10/11/24 [History] tiZANidine [Zanaflex] 2 mg PO QID PRN 10/11/24 [History] Follow up Appointment(s)/Referral(s): Shlomo Charles MD [Primary Care Provider] - 1-2 days (Office closed. Please call office Monday for your appt.) Patient Instructions/Handouts: Abdominal Pain (ED) Activity/Diet/Wound Care/Special Instructions: Every disease is a spectrum and a small chance still exists that a serious condition could develop, for this reason, please monitor yourself closely for new, changing or worsening symptoms, symptoms that do not continue to improve over the next 12 hours, sudden worsening pain, severe or uncontrolled pain, vomiting, no bowel movement for greater than 48 hours, black or bloody stools, fevers, inability to tolerate/keep down fluids or your medications, inability to follow up with outpatient providers as instructed and should you experience these symptoms or should you have any further concerns for your wellbeing please return to the ED or call 911 immediately. Please maintain a clear liquid diet for the next 24 hours with foods such as chicken broth, Jell-O, juices, Gatorade, etc. If pain has resolved before 24 hours has passed, you may progress to bland foods and continue to progress your diet as tolerated. PLEASE call your primary care physician as soon as possible to arrange / discuss plan for followup appointment. Appointment in the next 1-3 days is strongly encouraged if possible. PLEASE let us know here before you leave if there is anything further we can do to be of any assistance. Take care and feel Better! Discharge Disposition: HOME SELF-CARE
== END 2024-10-11 16:17 | disposition home or self-care (01) ==
LOC: EC 23:34 → 4SSUR 10-11 05:59
PROVIDERS: ADMIT Internal Medicine; ATTEND Internal Medicine
DX: R10.10 Upper abdominal pain, unspecified (principal); R19.00 Intra-abdominal and pelvic swelling, mass and lump, unspecified site; K59.00 Constipation, unspecified; R61 Generalized hyperhidrosis; R11.0 Nausea; E78.5 Hyperlipidemia, unspecified; E87.1 Hypo-osmolality and hyponatremia; R79.89 Other specified abnormal findings of blood chemistry; R74.01 Elevation of levels of liver transaminase levels; F41.9 Anxiety disorder, unspecified; Z79.899 Other long term (current) drug therapy; Z88.5 Allergy status to narcotic agent; Z91.048 Other nonmedicinal substance allergy status; Z86.39 Personal history of other endocrine, nutritional and metabolic disease; Z98.84 Bariatric surgery status; Z98.890 Other specified postprocedural states
CPT/HCPCS: 96361; 96374; 96375; 99285; 36415; 93005; 80053; 80048; 82150; 83605; 83690; 85025; 81001; 74177; G0378; J2405; J1885; Q9967